=== PATIENT | male | born 1985 | race African-American/Black ===

== ENCOUNTER 2020-05-24 00:17 | Observation (INO) ==
[2020-05-24] MEDS ORDERED: CLINDAMYCIN INJ 600 MG in PREMIX 1 EACH IV STA (00:54)
[2020-05-24 01:33] LABS: Basophils % 0.3 % (0.0-0.8); Eosinophils # 0.4 10*3/uL (0.0-0.87); Eosinophils % 4.4 % (0.00-10.9); Hematocrit 41.2 VOL% (42.0-52.0); Hemoglobin 13.5 GM/DL (14.0-18.0); Immature Granulocytes % 0.3 %; Immature Granulocytes Absolute 0.03 #; Lymphocytes # 2.2 10*3/uL (1.4-4.0); Lymphocytes % 21.9 % (21.2-54.2); Mean Corpuscular HGB Conc 32.8 GM/DL (32-36); Mean Corpuscular Volume 82.2 FL (87-102); Mean Platelet Volume 12.5 FL (9.6-12.0); Monocytes % 9.6 % (1.7-12.7); Neutrophils % 63.5 % (38.7-73.9); Platelet Count 144 T/CUMM (130-400); Red Blood Count 5.01 MC/CUMM (3.8-5.5); Red Cell Distribution Width 14.6 % (9.3-17.3); White Blood Count 9.9 T/CUMM (4-12)
[2020-05-24 02:21] LABS: Albumin 3.1 G/DL (3.4-5.0); Bilirubin,Total 0.9 MG/DL (0.2-1.0); Calcium 9.2 MG/DL (8.5-10.1); Osmolality,Calculated 281.1 MOS/KG (273-304); Total Protein 7.2 G/DL (6.4-8.3)
[2020-05-24 04:28] LABS: Anisocytosis 1+; Platelet Estimate Normal
[2020-05-24] MEDS ORDERED: DOCUSATE SODIUM 100 MG CAPSULE PO PRN (04:29)
[2020-05-24] MEDS ORDERED: ACETAMINOPHEN 325 MG TABLET PO PRN (04:29)
[2020-05-24] MEDS ORDERED: MORPHINE 4 MG/1 ML VIAL IV PRN (04:29)
[2020-05-24] MEDS ORDERED: ONDANSETRON 4 MG/2 ML VIAL IV PRN (04:29)
[2020-05-24] MEDS: PIPERACILLIN/TAZOBACTAM 3,375 MG in SODIUM CHLORIDE 0.9% 100 ML IV SCH ×3 (05:25→23:19)
[2020-05-24] MEDS: ENOXAPARIN 40 MG/0.4 ML SYRINGE SUBCUT SCH (05:47)
[2020-05-24 08:07] LABS: % Iron Saturation 9.2 % (18-50)
[2020-05-24 08:42] LABS: Basophils % 0.4 % (0.0-0.8); Eosinophils # 0.4 10*3/uL (0.0-0.87); Eosinophils % 4.9 % (0.00-10.9); Hematocrit 38.1 VOL% (42.0-52.0); Hemoglobin 12.4 GM/DL (14.0-18.0); Immature Granulocytes % 0.4 %; Immature Granulocytes Absolute 0.03 #; Lymphocytes # 2.4 10*3/uL (1.4-4.0); Lymphocytes % 28.2 % (21.2-54.2); Mean Corpuscular HGB Conc 32.5 GM/DL (32-36); Mean Corpuscular Volume 82.6 FL (87-102); Mean Platelet Volume 12.5 FL (9.6-12.0); Monocytes % 9.6 % (1.7-12.7); Neutrophils % 56.5 % (38.7-73.9); Platelet Count 140 T/CUMM (130-400); Red Blood Count 4.61 MC/CUMM (3.8-5.5); Red Cell Distribution Width 14.7 % (9.3-17.3); White Blood Count 8.5 T/CUMM (4-12)
[2020-05-24 09:27] LABS: Folate 4.4 NG/ML (5.4-24.0); Vitamin B12 1473 PG/ML (211-911)
[2020-05-24] MEDS: VANCOMYCIN INJ 1,250 MG in SODIUM CHLORIDE 0.9% 250 ML IV SCH ×2 (09:50→21:08)
[2020-05-24 10:48] LABS: Sedimentation Rate-Westergren 72 MM/HR (0-15)
[2020-05-24] MEDS: SODIUM CHLORIDE 0.9% 1,000 ML IV SCH (11:16)
[2020-05-24 11:28] LABS: HIV Antigen/Antibody Result Nonreactive (Nonreactive)
[2020-05-24] MEDS ORDERED: PROMETHAZINE 25 MG/1 ML VIAL IM ONE (11:34)
[2020-05-24] MEDS ORDERED: HYDROmorphone 2 MG/1 ML VIAL IV ONE (11:34)
[2020-05-24 12:14] LABS: Eosinophils 2 % (0-10); Hypochromasia 2+; Lymphocytes 24 % (20-55); Polychromasia Slight; Segmented Neutrophils 71 % (50-85); Total Cells Counted 100
[2020-05-24 12:15] LABS: Platelet Estimate Adequate
[2020-05-24 12:16] LABS: Microcytosis 1+; Stomatocytes Slight
[2020-05-24] MEDS ORDERED: propofoL 200 MG/20 ML VIAL IV ONE (13:22)
[2020-05-24] MEDS ORDERED: SEVOFLURANE 1 UNIT/15 MINUTE INH ONE (13:22)
[2020-05-24] MEDS ORDERED: LIDOCAINE 2% 5 ML VIAL ONE (13:22)
[2020-05-24] MEDS ORDERED: ONDANSETRON 4 MG/2 ML VIAL ONE (13:23)
[2020-05-24] MEDS ORDERED: fentaNYL 100 MCG/2 ML VIAL ONE (13:23)
[2020-05-24] MEDS ORDERED: SUCCINYLCHOLINE 200 MG/10 ML VIAL ONE (13:23)
[2020-05-24 13:45] LABS: Apearance,Urine CLEAR (Clear); Bilirubin,Urine Negative (Negative); Blood, Urine Negative (Negative); Glucose,Urine (UA) Negative (Negative); Ketones,Urine Negative (Negative); Mucus,Urine Occasional /LPF (Occasional); Nitrite,Urine Negative (Negative); Protein,Urine Negative; RBC,Urine 3 /HPF (0-4); Squamous Epithelial Cell,Urine Occasional /HPF (0-10); Urine Color Yellow (Yellow); Urine Specific Gravity > 1.060 (1.001-1.035); WBC,Urine 1 /HPF (0-6)
[2020-05-24 13:46] LABS: Barbiturates Screen,Urine Negative (Negative); Benzodiazepines Screen,Urine Negative (Negative); Cannabinoid Screen,Urine Negative (Negative); Opiate Screen,Urine Negative (Negative); Phencyclidine Screen,Urine Negative (Negative)
[2020-05-24] MEDS: amLODIPine 10 MG TABLET PO SCH (17:09)
[2020-05-24] MEDS: NICOTINE 21 MG/24 HR PATCH TRANSDERM SCH (18:37)
[2020-05-25] MEDS: SODIUM CHLORIDE 0.9% 1,000 ML IV SCH ×2 (00:58→13:44)
[2020-05-25] MEDS: ENOXAPARIN 40 MG/0.4 ML SYRINGE SUBCUT SCH (05:38)
[2020-05-25] MEDS: PIPERACILLIN/TAZOBACTAM 3,375 MG in SODIUM CHLORIDE 0.9% 100 ML IV SCH (06:34)
[2020-05-25 06:35] LABS: Calcium 8.6 MG/DL (8.5-10.1); Osmolality,Calculated 279.4 MOS/KG (273-304)
[2020-05-25 06:40] LABS: Basophils % 0.4 % (0.0-0.8); Eosinophils # 0.4 10*3/uL (0.0-0.87); Hematocrit 38.6 VOL% (42.0-52.0); Hemoglobin 12.7 GM/DL (14.0-18.0); Immature Granulocytes % 0.5 %; Immature Granulocytes Absolute 0.04 #; Lymphocytes # 1.5 10*3/uL (1.4-4.0); Lymphocytes % 18.7 % (21.2-54.2); Mean Corpuscular HGB Conc 32.9 GM/DL (32-36); Mean Corpuscular Volume 82.5 FL (87-102); Mean Platelet Volume 12.9 FL (9.6-12.0); Monocytes % 7.1 % (1.7-12.7); Neutrophils % 68.3 % (38.7-73.9); Platelet Count 164 T/CUMM (130-400); Red Blood Count 4.68 MC/CUMM (3.8-5.5); Red Cell Distribution Width 14.7 % (9.3-17.3); White Blood Count 7.8 T/CUMM (4-12)
[2020-05-25] MEDS ORDERED: FERROUS SULFATE 325 MG TABLET PO SCH (09:00)
[2020-05-25] MEDS: NICOTINE 21 MG/24 HR PATCH TRANSDERM SCH (09:37)
[2020-05-25] MEDS: VANCOMYCIN INJ 1,250 MG in SODIUM CHLORIDE 0.9% 250 ML IV SCH (09:38)
[2020-05-25] MEDS: amLODIPine 10 MG TABLET PO SCH (09:38)
[2020-05-25 13:02] VITALS: BP 116/59
[2020-05-25] MEDS ORDERED: NICOTINE 21 MG/24 HR PATCH TRANSDERM SCH (18:09)
[2020-05-25] MEDS ORDERED: CEFUROXIME 500 MG TABLET PO SCH (21:00)
[2020-05-27 10:44] LABS: Hemoglobin A1 (Alkaline) 97.1 % (96.5-98.5); Hemoglobin A2 (Alkaline) 2.9 % (1.5-3.5)
== END 2020-05-25 15:01 | disposition home or self-care (01) ==
LOC: N.ED 00:17 → N.EDINP 00:17 → N.3E 05:43
PROVIDERS: ADMIT Internal Medicine; ATTEND Internal Medicine

== ENCOUNTER 2020-12-16 00:28 | Observation (INO) ==
[2020-12-16 01:40] LABS: Basophils % 0.2 % (0.0-0.8); Eosinophils % 0.1 % (0.00-10.9); Hematocrit 42.8 VOL% (42.0-52.0); Hemoglobin 13.7 GM/DL (14.0-18.0); Immature Granulocytes % 0.4 %; Immature Granulocytes Absolute 0.04 #; Lymphocytes # 1.8 10*3/uL (1.4-4.0); Lymphocytes % 16.2 % (21.2-54.2); Mean Corpuscular Volume 82.9 FL (87-102); Mean Platelet Volume 11.4 FL (9.6-12.0); Neutrophils % 74.1 % (38.7-73.9); Platelet Count 214 T/CUMM (130-400); Red Blood Count 5.16 MC/CUMM (3.8-5.5); Red Cell Distribution Width 13.5 % (9.3-17.3); White Blood Count 11.1 T/CUMM (4-12)
[2020-12-16 01:55] LABS: Calcium 9.2 MG/DL (8.5-10.1); Osmolality,Calculated 278.3 MOS/KG (273-304); Potassium 3.4 MMOL/L (3.5-5.1)
[2020-12-16 02:12] LABS: Microcytosis Slight; Platelet Estimate Decreased; Spherocytes Few
[2020-12-16] MEDS ORDERED: ACETAMINOPHEN 325 MG TABLET PO PRN (03:48)
[2020-12-16] MEDS ORDERED: ONDANSETRON 4 MG/2 ML VIAL IV PRN (03:48)
[2020-12-16] MEDS: MORPHINE 4 MG/1 ML VIAL IV PRN ×2 (04:34→20:55)
[2020-12-16] MEDS: PIPERACILLIN/TAZOBACTAM 3,375 MG in SODIUM CHLORIDE 0.9% 100 ML IV SCH ×3 (05:07→20:55)
[2020-12-16] MEDS: LACTATED RINGERS 1,000 ML IV SCH ×2 (05:07→23:52)
[2020-12-16] MEDS ORDERED: INFLUENZA VIRUS VACCINE 0.5 ML SYRINGE IM ONE (05:20)
[2020-12-16] MEDS ORDERED: ceFAZolin 1,000 MG in SYRINGE 1 EACH IV ONE (07:48)
[2020-12-16] MEDS: PANTOPRAZOLE 40 MG TABLET PO SCH (08:24)
[2020-12-16] MEDS ORDERED: propofoL 200 MG/20 ML VIAL IV ONE (12:02)
[2020-12-16] MEDS ORDERED: LIDOCAINE 2% 5 ML VIAL ONE (12:02)
[2020-12-16] MEDS ORDERED: fentaNYL 100 MCG/2 ML VIAL ONE (12:02)
[2020-12-16] MEDS ORDERED: MIDAZOLAM 2 MG/2 ML VIAL ONE (12:03)
[2020-12-16] MEDS ORDERED: ONDANSETRON 4 MG/2 ML VIAL ONE (12:32)
[2020-12-16] MEDS ORDERED: HYDROmorphone 2 MG/1 ML VIAL ONE (12:49)
[2020-12-16] MEDS ORDERED: LACTATED RINGERS 1,000 ML IV ONE (13:00)
[2020-12-16] MEDS ORDERED: SEVOFLURANE 1 UNIT/15 MINUTE INH ONE (13:01)
[2020-12-16] MEDS: VANCOMYCIN INJ 1,250 MG in SODIUM CHLORIDE 0.9% 250 ML IV SCH (15:40)
[2020-12-17] MEDS: VANCOMYCIN INJ 1,250 MG in SODIUM CHLORIDE 0.9% 250 ML IV SCH ×2 (02:00→14:40)
[2020-12-17] MEDS: LACTATED RINGERS 1,000 ML IV SCH ×3 (03:24→17:23)
[2020-12-17] MEDS: MORPHINE 4 MG/1 ML VIAL IV PRN (03:34)
[2020-12-17] MEDS: PIPERACILLIN/TAZOBACTAM 3,375 MG in SODIUM CHLORIDE 0.9% 100 ML IV SCH ×3 (05:39→21:17)
[2020-12-17] MEDS: PANTOPRAZOLE 40 MG TABLET PO SCH (09:40)
[2020-12-18] MEDS: MORPHINE 4 MG/1 ML VIAL IV PRN (00:53)
[2020-12-18] MEDS: VANCOMYCIN INJ 1,250 MG in SODIUM CHLORIDE 0.9% 250 ML IV SCH (03:05)
[2020-12-18] MEDS: PIPERACILLIN/TAZOBACTAM 3,375 MG in SODIUM CHLORIDE 0.9% 100 ML IV SCH (05:26)
[2020-12-18] MEDS: PANTOPRAZOLE 40 MG TABLET PO SCH (09:17)
[2020-12-18] MEDS: LACTATED RINGERS 1,000 ML IV SCH (10:22)
[2020-12-18 11:43] VITALS: BP 116/56
== END 2020-12-18 15:10 | disposition home or self-care (01) ==
LOC: N.ED 00:28 → N.EDINP 00:28 → N.3E 03:43
PROVIDERS: ADMIT Student in an Organized Health Care Education/Training Program; ATTEND Student in an Organized Health Care Education/Training Program